=== PATIENT | male | born 1980 | race Caucasian/White ===

== ENCOUNTER → 2020-04-03 | Outpatient (CLI) | payer OTHER ==
[~2020-04-03] MED LIST: ACET500T33 PO; AMLO10TA8 PO; CHLO4TAB20 PO; FAMO-63 PO; GEMF600T PO; GUAI400T78 PO; HYDR12.58 PO; LISI40TA PO; MAG-27 PO; MAGN400O7 PO; NAPR500T8 PO; OMEP20CA16 PO; POLY17PO5 PO; RANI-376 PO; SUCR1TAB35 PO
== END ==
LOC: LAB 08:07
PROVIDERS: ATTEND Nurse Anesthetist, Certified Registered
DX: Z01.812 Encounter for preprocedural laboratory examination (principal); Z20.828 Contact with and (suspected) exposure to other viral communicable diseases
CPT/HCPCS: 87426; U0003

== ENCOUNTER → 2020-04-03 | Day surgery (SDC) | payer OTHER ==
[~2020-04-03] MED LIST changes: +AMLO-187 PO; -AMLO10TA8 PO; +IPRATRPIUM/ALBUTEROL 0.5/2.5MG 3 ML NEBU. NEB PRN; +IV RINGERS SOLUTION,LACTATED 1,000 ML IV SCH; +MIDAZOLAM HCL PF 2 MG/2 ML VIAL. IV ONE; +ONDANSETRON PF 4 MG/2 ML VIAL. IV PRN; +PROPOFOL 10,000 MCG/ML (20ML) VIAL IV ONE
[2020-04-03 11:56] VITALS: BP 108/63
== END | disposition home or self-care (01) ==
LOC: SURG 08:13
PROVIDERS: ATTEND Internal Medicine Gastroenterology
DX: R10.13 Epigastric pain (principal); K29.70 Gastritis, unspecified, without bleeding; K21.9 Gastro-esophageal reflux disease without esophagitis; E78.00 Pure hypercholesterolemia, unspecified; G43.909 Migraine, unspecified, not intractable, without status migrainosus; I48.91 Unspecified atrial fibrillation; I10 Essential (primary) hypertension; Z87.891 Personal history of nicotine dependence; Z98.890 Other specified postprocedural states; Z79.899 Other long term (current) drug therapy; Z88.6 Allergy status to analgesic agent; Z88.8 Allergy status to other drugs, medicaments and biological substances; Z88.0 Allergy status to penicillin; Z90.49 Acquired absence of other specified parts of digestive tract; Z87.442 Personal history of urinary calculi
CPT/HCPCS: 43239; 88305; 88342; J2704; J7120

== ENCOUNTER → 2020-06-16 | Outpatient (CLI) | payer OTHER ==
[2020-04-03 11:56] VITALS: BP 108/63
[~2020-06-16] MED LIST changes: -IPRATRPIUM/ALBUTEROL 0.5/2.5MG 3 ML NEBU. NEB PRN; -IV RINGERS SOLUTION,LACTATED 1,000 ML IV SCH; -MIDAZOLAM HCL PF 2 MG/2 ML VIAL. IV ONE; -ONDANSETRON PF 4 MG/2 ML VIAL. IV PRN; -PROPOFOL 10,000 MCG/ML (20ML) VIAL IV ONE
--- NOTE | 2020-06-16 16:48 | RAD ---
STUDY: US Abdomen Complete INDICATION: Abdominal pain. COMPARISON: CT abdomen/pelvis 05/24/2019 TECHNIQUE: Real-time grayscale and color Doppler sonographic evaluation of the abdomen. Findings: Pancreas: What is seen of the pancreas is unremarkable. Liver: Within the broad range of normal for size and echotexture. No focal parenchymal abnormality. Aorta/IVC/Main Portal Vein: Patent main portal vein with hepatopedal flow. Nonaneurysmal aorta. Paten t IVC at the liver. Gall Bladder: Surgically absent. Common Bile Duct: Dilated common duct at 0.8 cm favored most likely on account of reservoir effect gi maryam absence of the gallbladder. Similar transverse dimension of the common duct on the comparison CT. Right Kidney: Measures 9.6 cm in length. Normal cortical thickness and echogenicity. No hydronephrosi s. Left Kidney: Measures 9.6 cm in length. Normal cortical thickness and echogenicity. No hydronephrosis . Spleen: Within normal limits for size at 12.1 cm longitudinal. Miscellaneous: None. Impression: 1. No sonographic abnormality to account for the patient's abdominal pain. 2. Surgically absent gallbladder. Electronically signed by: FAVIOLA IBARRA MD (06/16/2020 4:46 PM) [facility]
== END ==
LOC: EEVIPCON 11:00 → US 11:01
PROVIDERS: ATTEND Preventive Medicine Occupational Medicine
DX: R10.9 Unspecified abdominal pain (principal); Z90.49 Acquired absence of other specified parts of digestive tract
CPT/HCPCS: 76700

== ENCOUNTER → 2020-07-24 | Outpatient (CLI) | payer OTHER ==
[2020-04-03 11:56] VITALS: BP 108/63
--- NOTE | 2020-07-24 09:35 | RAD ---
INDICATION: Reason: Gastritis / Spl. Instructions: / History: COMPARISON: June 16, 2020 TECHNIQUE: Grayscale and color ultrasound images obtained through the abdomen. FINDINGS: Aorta/IVC: Visualized portion unremarkable. Pancreas: Visualized portions unremarkable. Liver: Echotexture within normal limits. Gallbladder: Removed Common Bile Duct: Not dilated. Right Kidney: No hydronephrosis. Left Kidney: No hydronephrosis. Spleen: Unremarkable. IMPRESSION: * No evidence of hydronephrosis. * Postcholecystectomy without common bile duct dilation. Electronically signed by: Saurav Sanchez MD (07/24/2020 9:32 AM) [id number]
== END ==
LOC: EEVIPCON 08:51 → US 08:51
PROVIDERS: ATTEND Preventive Medicine Occupational Medicine
DX: K29.70 Gastritis, unspecified, without bleeding (principal); Z90.49 Acquired absence of other specified parts of digestive tract
CPT/HCPCS: 76700

== ENCOUNTER → 2020-11-13 | Outpatient (CLI) | payer OTHER ==
[2020-04-03 11:56] VITALS: BP 108/63
[~2020-11-13] MED LIST changes: -LISI40TA PO; +LISI40TA6 PO
--- NOTE | 2020-11-13 13:48 | RAD ---
EXAM: Abdomen sonogram. HISTORY: Epigastric pain. TECHNIQUE: Sonographic imaging of the abdomen was performed. COMPARISON: 07/24/2020. FINDINGS: The liver is upper normal in size. No focal hepatic lesion is seen. The gallbladder is surg ically absent. The common bile duct is dilated to a caliber of 8.4 mm. The kidneys are normal in size . There is no hydronephrosis. The spleen is normal in size. The pancreas is unremarkable. The aorta i s normal in caliber. The inferior vena cava is patent. IMPRESSION: 1. Mild common bile duct dilatation. This may be due to reservoir effect status post cholecystomy. Th is was not seen on the prior study. MRCP can be performed if there is concern for an occult etiology. 2. Otherwise, unremarkable abdomen sonogram. Electronically signed by: Georgia Cheng MD (11/13/2020 1:45 PM) [id number]
== END ==
LOC: US 12:46 → EEVIPCON 13:00
PROVIDERS: ATTEND Preventive Medicine Occupational Medicine
DX: R10.84 Generalized abdominal pain (principal); Z90.49 Acquired absence of other specified parts of digestive tract
CPT/HCPCS: 76700

== ENCOUNTER → 2020-12-11 | Day surgery (SDC) | payer OTHER ==
[~2020-12-11] MED LIST changes: +IPRATRPIUM/ALBUTEROL 0.5/2.5MG 3 ML NEBU. NEB PRN; +IV RINGERS SOLUTION,LACTATED 1,000 ML IV SCH; +LIDOCAINE 2% PF 5 ML VIAL. ONE; +MIDAZOLAM HCL PF 2 MG/2 ML VIAL. IV ONE; +ONDANSETRON PF 4 MG/2 ML VIAL. IV PRN; +PROPOFOL 10,000 MCG/ML (20ML) VIAL IV ONE
[2020-12-11 12:31] VITALS: BP 112/80
== END | disposition home or self-care (01) ==
LOC: SURG 10:36
PROVIDERS: ATTEND Internal Medicine Gastroenterology
DX: K62.5 Hemorrhage of anus and rectum (principal); K64.8 Other hemorrhoids; I10 Essential (primary) hypertension; K21.9 Gastro-esophageal reflux disease without esophagitis; I48.91 Unspecified atrial fibrillation; G43.909 Migraine, unspecified, not intractable, without status migrainosus; Z88.5 Allergy status to narcotic agent; Z88.0 Allergy status to penicillin; Z72.89 Other problems related to lifestyle; Z87.442 Personal history of urinary calculi; Z87.440 Personal history of urinary (tract) infections; Z90.49 Acquired absence of other specified parts of digestive tract
CPT/HCPCS: 45378; J2001; J2704; J7120